=== PATIENT | female | born 1960 | race Hispanic/Latino ===

== ENCOUNTER 2022-12-11 14:38 | Emergency (ER) | payer OTHER ==
[~2022-12-11] VITALS: Ht 154.9 cm; Wt 63.5 kg
[2022-12-11 16:30] VITALS: BP 128/70
== END 2022-12-11 17:43 | disposition left against medical advice (07) ==
LOC: EDH 14:38
DX: R11.2 Nausea with vomiting, unspecified (principal); R06.02 Shortness of breath; R10.9 Unspecified abdominal pain; Z53.21 Procedure and treatment not carried out due to patient leaving prior to being seen by health care provider
CPT/HCPCS: 93005; 99281